=== PATIENT | male | born 1985 | race Caucasian/White ===

== ENCOUNTER 2018-11-05 00:10 | Inpatient (IN) | payer OTHER ==
[~2018-11-05] VITALS: Ht 175.3 cm; Wt 73.0 kg
[2018-11-05 00:23] VITALS: Ht 175.3 cm; Wt 73.0 kg
--- NOTE | 2018-11-05 00:50 | NUR ---
PT TO ULTRASOUND VIA WHEELCHAIR.
--- NOTE | 2018-11-05 00:54 | NUR ---
PT TO ED FOR EVAL OF R TESTICULAR PAIN PAIN. STARTED WHILE HAVING BM. PT AWAKE AND ALERT. BREATHING EVEN UNLABORED NO DISTRESS. MSE COMPLETED. PT MEDICATED ORDERED AND TAKEN TO ULTRASOUND VIA WHEELCHAIR.
[2018-11-05 02:45] LABS: BASOPHIL % 0.4 % (0-2); PLATELET COUNT 309 x10^3mcL (130-400); RED CELL DISTRIBUTION WIDTH 11.7 % (11.5-14.5)
[2018-11-05 02:50] LABS: CARBON DIOXIDE 25.4 mmol/L (21-32); CHLORIDE SERUM 104 mmol/L (98-107); CREATININE SERUM 1.3 mg/dL (0.7-1.3); GFR1 > 60 mL/min; GLUCOSE SERUM 109 mg/dL (74-106); POTASSIUM SERUM 3.7 mmol/L (3.5-5.1); SODIUM SERUM 141 mmol/L (136-145)
[2018-11-05 03:07] LABS: ALBUMIN 3.9 g/dL (3.4-5.0); ALKALINE PHOSPHATASE 81 U/L (46-116); ALT/SGPT 39 U/L (16-63); AST/SGOT 20 U/L (15-37); BILIRUBIN TOTAL 0.56 mg/dL (0.20-1.00); LIPASE 145 IU/L (73-393); TOTAL PROTEIN, SERUM 7.7 g/dL (6.4-8.2)
--- NOTE | 2018-11-05 03:23 | NUR ---
PT LAYING ON GURNEY IN POSITION OF COMFORT. NO S/S OF DISTRESS. RESP E/U. AT BEDSIDE. WILL CONTINUE TO MONITOR.
--- NOTE | 2018-11-05 04:32 | NUR ---
PT LAYING ON GURNEY IN POSITION OF COMFORT. NO S/S OF DISTRESS. RESP E/U. PT VERBALIZED PAIN RELIEF. WILL CONTINUE TO MONITOR.
--- NOTE | 2018-11-05 05:39 | NUR ---
PT LAYING ON GURNEY IN POSITION OF COMFORT. AT BEDSIDE. NO SS OF DISTRESS. RESP E/U. WILL CONTINUE TO MONITOR.
--- NOTE | 2018-11-05 07:04 | NUR ---
PT MEDICATED PER ORDER. PT VERBALIZED UNDERSTANDING OF MEDICATION TEACHING. SEE EMAR FOR DETAILS.
[2018-11-05 07:12] LABS: microscopic required? YES; urine erythrocyte 3+ (NEGATIVE)
--- NOTE | 2018-11-05 07:19 | NUR ---
REPORT TO ALYSSA MALLORY TO ASSUME CARE
--- NOTE | 2018-11-05 07:22 | NUR ---
REPORT TAKEN FROM ALEX SHAH IN THE ER.
[2018-11-05 07:32] LABS: AMPHETAMINE QUAL UR NONE DETECTED (See below)
[2018-11-05 07:34] VITALS: BP 135/98
[2018-11-05 09:20] LABS: T3 TOTAL 1.59 ng/mL
[2018-11-05 09:44] LABS: CHOLESTEROL/HDL RATIO 3.5; MAGNESIUM 1.8 mg/dL (1.8-2.4)
[2018-11-05 09:51] LABS: FREE T4 1.31 ng/dL (0.76-1.46); T4(THYROXINE) 11.7 ug/dL (4.7-13.3)
[2018-11-05 10:07] VITALS: BP 135/98
[2018-11-05 16:38] VITALS: BP 95/64
--- NOTE | 2018-11-05 18:56 | NUR ---
PT TOLERATED SHIFT AND TREATMENT WELL, WILL REPORT TO [facility] SERVICE TECHNICIAN NURSE AND ENDORSE CARE.
--- NOTE | 2018-11-05 19:54 | NUR ---
SHIFT REASSESSMENT DONE.PATIENT ALERT AND ORIENTED.NOT IN RESP DISTRESS.FAMILY AT BEDSIDE,SUPPORTIVE OF CARE.AMBULATORY,GEN WEAKNESS.IV SITE LAC NS AT 100 CC/ HOUR.NO EDEMA NOTED.SCD ORDERED.VOIDING,STRAIN URINE FOR KIDNEY STONES.CONSULT DR BRYSON AND LOY,DID NOT SEE PATIENT YET SINCE ADMIT.PAIN MED WILL GIVE WHEN NEEDED.CALL LIGHT IN REACH.
--- NOTE | 2018-11-05 21:00 | NUR ---
PATIENT DID NOT WANT COLACE.SAYS HE DO NOT NEED IT.
[2018-11-05 21:19] VITALS: BP 106/63
--- NOTE | 2018-11-05 23:42 | NUR ---
PATIENT CHECKED AT INTERVALS,FOR NEEDS AND SAFETY.
--- NOTE | 2018-11-06 05:07 | NUR ---
I AND O MEASURED.URINE STRAINED.NO STONES NOTED.IVF NS AT 100 CC/ HOUR.
[2018-11-06 05:10] VITALS: BP 93/53
--- NOTE | 2018-11-06 06:26 | NUR ---
OGFFRED PAIN MED BEFORE END OF SHIFT,6 HOURS PRN,SAYS HE IS OK.NS AT 100 CC/HOUR INFUSING WELL.LAC IV SITE NOW WITH EXTENSION TUBING.NO STONES NOTED/STRAIN URINE.ALMOST LIKE REFINED SAND.
[2018-11-06 06:42] LABS: BASOPHIL % 0.3 % (0-2); PLATELET COUNT 256 x10^3mcL (130-400); RED CELL DISTRIBUTION WIDTH 13.1 % (11.5-14.5)
[2018-11-06 06:58] LABS: CALCIUM 8.4 mg/dL (8.5-10.1); CARBON DIOXIDE 24.7 mmol/L (21-32); CHLORIDE SERUM 108 mmol/L (98-107); CREATININE SERUM 0.8 mg/dL (0.7-1.3); GFR1 > 60 mL/min; GLUCOSE SERUM 98 mg/dL (74-106); POTASSIUM SERUM 3.7 mmol/L (3.5-5.1); SODIUM SERUM 143 mmol/L (136-145)
--- NOTE | 2018-11-06 07:40 | NUR ---
PATIENT RESTING IN BED, NO ACUTE DISTRESS NOTED. PATIENT DENIES PAIN UPON URINATION. PATIENT AWARE TO NOTIFY ANY BURING, PAIN UPON URINNATION. EDUCATED PATIENT ON PAIN MANAGEMENT. NS IV TO LAC INFUSING AT 100ML/HR, NO S/S OF INFILTRATION. CALL LIGHT WITHIN REACH, BED IN LOW POSITION, WILL CONTINUE TO MONITOR.
[2018-11-06 08:18] VITALS: BP 94/62
[2018-11-06 12:16] VITALS: BP 94/62
[2018-11-06 12:20] VITALS: BP 123/86
--- NOTE | 2018-11-06 12:45 | NUR ---
PATIENT WAS DISCHARGED HOME, SPOUSE AT BEDSIDE. PATIENT RECEIVED COPY OF DISCHARGED INSTRUCTION, PATIENT & SPOUSE UNDERSTAND AND AGREE WITH D/C INSTRUCTIONS & POC, INCLUDING MEDICATIONS & FOLLOW UP CARE WITH PCP. ALL QUESTIONS AND CONCERNS ADDRESSED. PATIENT TOOK ALL PERSONAL BELONGINGS. IV TO LAC REMOVED, CATHETER INTACT. ARMBANDS REMOVED. PATIENT TAKEN DOWN BY HR COORDINATOR.
== END 2018-11-06 12:45 | disposition home or self-care (01) | DRG 694 ==
LOC: ED 00:10 → MU 06:22
PROVIDERS: Emergency Medicine; ADMIT Internal Medicine
DX: N13.2 Hydronephrosis with renal and ureteral calculous obstruction (principal)
CPT/HCPCS: 83880; 84439; 87491; 87591; G0378; J1885; J2270; J7030; Q9966; Q9967